=== PATIENT | female | born 1940 | race Caucasian/White ===

== ENCOUNTER 2022-11-23 17:28 | Emergency (ER) | payer MEDICARE ==
[2022-11-23] MEDS: Aspirin 81 MG Tab.Chew PO ONE (17:37)
[2022-11-23] MEDS ORDERED: Sodium Chloride 0.9% 10 ML Syringe FLUSH PRN (17:38)
[2022-11-23] MEDS: Sodium Chloride 0.9% 500 ML IV ONE (17:42)
[2022-11-23 17:58] LABS: BASOPHILS ABSOLUTE AUTO 0.07 K/uL (0.02-0.10); BASOPHILS PERCENT AUTO 0.9 % (0.0-0.5); EOSINOPHILS ABSOLUTE AUTO 0.22 K/uL (0.04-0.40); EOSINOPHILS PERCENT AUTO 2.9 % (1.0-5.0); HEMATOCRIT 34.6 % (37.0-47.0); HEMOGLOBIN 11.5 g/dL (11.5-16.5); LYMPHOCYTES PERCENT AUTO 17.4 % (20.0-40.0); MEAN CORPUSCULAR HEMOGLOBIN 31.4 pg (27.0-32.0); MEAN CORPUSCULAR HGB CONC 33.2 g/dL (31.0-35.0); MEAN CORPUSCULAR VOLUME 95 fL (76-96); MEAN PLATELET VOLUME 8.7 fL (6.0-10.0); MONOCYTES ABSOLUTE AUTO 0.96 K/uL (0.20-0.80); MONOCYTES PERCENT AUTO 12.8 % (3.0-10.0); NEUTROPHILS ABSOLUTE AUTO 4.94 K/uL (2.00-7.50); PLATELET COUNT,PLT 366 K/uL (150-500); RED BLOOD CELL COUNT 3.66 M/uL (3.80-5.80); RED CELL DISTRIBUTION WIDTH 14.3 % (11.0-16.0); WHITE BLOOD CELL COUNT,WBC 7.5 K/uL (4.0-11.0)
[2022-11-23 18:15] LABS: ALBUMIN 3.1 g/dL (3.4-5.0); ANION GAP 15.2 mmol/L (5.0-15.0); BILIRUBIN TOTAL 0.2 mg/dL (0.0-1.0); BUN/CREATININE RATIO 19.7 (6-25); CALCIUM 8.6 mg/dL (8.5-10.1); CARBON DIOXIDE,CO2 23.4 mmol/L (21.0-32.0); CREATININE 0.76 mg/dL (0.55-1.02); EST CRCL DRUG DOSING (CG) 39.58 mL/min; POTASSIUM,K 3.6 mmol/L (3.5-5.1); PROTEIN TOTAL,TP 6.2 g/dL (6.4-8.2)
[2022-11-23 18:25] VITALS: BP 122/59; PULSE 73
[2022-11-23 18:38] LABS: PROTHROMBIN TIME 10.2 sec (9.0-11.5)
== END 2022-11-23 18:47 | disposition home or self-care (01) ==
LOC: LB.ED 17:28
DX: R55 Syncope and collapse (principal)
CPT/HCPCS: 36415; 71045; 80053; 83735; 84484; 85025; 85610; 85730; 93005; 96360; 99285; A9270; J7040

== ENCOUNTER 2024-09-16 13:24 | Emergency (ER) | payer MEDICARE ==
[2024-09-16] MEDS ORDERED: Naloxone 2 MG/2 ML Syringe IVPUSH PRN (14:05)
[2024-09-16] MEDS: fentaNYL 100 MCG/2 ML SDV IVPUSH PRN (14:12)
[2024-09-16] MEDS: cefTRIAXone 1 GM in Sodium Chloride 0.9% 50 ML IV ONE (14:15)
[2024-09-16] MEDS: Sodium Chloride 0.9% 1,000 ML IV ONE (14:21)
[2024-09-16 14:23] LABS: BASOPHILS ABSOLUTE AUTO 0.05 K/uL (0.02-0.10); BASOPHILS PERCENT AUTO 0.4 % (0.0-0.5); EOSINOPHILS ABSOLUTE AUTO 0.04 K/uL (0.04-0.40); EOSINOPHILS PERCENT AUTO 0.3 % (1.0-5.0); HEMATOCRIT 36.1 % (37.0-47.0); HEMOGLOBIN 12.3 g/dL (11.5-16.5); LYMPHOCYTES ABSOLUTE AUTO 1.14 K/uL (1.50-4.00); LYMPHOCYTES PERCENT AUTO 8.7 % (20.0-40.0); MEAN CORPUSCULAR HEMOGLOBIN 32.7 pg (27.0-32.0); MEAN CORPUSCULAR HGB CONC 34.1 g/dL (31.0-35.0); MEAN CORPUSCULAR VOLUME 96 fL (76-96); MONOCYTES ABSOLUTE AUTO 1.65 K/uL (0.20-0.80); MONOCYTES PERCENT AUTO 12.5 % (3.0-10.0); NEUTROPHILS ABSOLUTE AUTO 10.27 K/uL (2.00-7.50); NEUTROPHILS PERCENT AUTO 78.1 % (45.0-70.0); PLATELET COUNT,PLT 436 K/uL (150-500); RED BLOOD CELL COUNT 3.76 M/uL (3.80-5.80); RED CELL DISTRIBUTION WIDTH 12.7 % (11.0-16.0); WHITE BLOOD CELL COUNT,WBC 13.2 K/uL (4.0-11.0)
[2024-09-16 14:48] LABS: A/G RATIO 0.9 (0.8-2.0); ALBUMIN 2.9 g/dL (3.4-5.0); ANION GAP 18.4 mmol/L (5.0-15.0); BILIRUBIN TOTAL 0.4 mg/dL (0.0-1.0); BUN/CREATININE RATIO 23.1 (6-25); CALCIUM 8.9 mg/dL (8.5-10.1); CARBON DIOXIDE,CO2 21.7 mmol/L (21.0-32.0); CREATININE 0.78 mg/dL (0.55-1.02); EST CRCL DRUG DOSING (CG) 37.19 mL/min; POTASSIUM,K 4.1 mmol/L (3.5-5.1); PROTEIN TOTAL,TP 6.3 g/dL (6.4-8.2)
[2024-09-16] MEDS: Doxycycline 100 MG in Sodium Chloride 0.9% 100 ML IV ONE (14:52)
[2024-09-16] MEDS ORDERED: traMADol 50 MG Tab ONE (15:30)
[2024-09-16] MEDS ORDERED: Doxycycline 100 MG Cap ONE (15:30)
[2024-09-16 16:01] VITALS: BP 162/81; PULSE 71
== END 2024-09-16 15:55 | disposition home or self-care (01) ==
LOC: LB.ED 13:24
DX: L03.113 Cellulitis of right upper limb (principal); I10 Essential (primary) hypertension; Z79.899 Other long term (current) drug therapy
CPT/HCPCS: 36415; 80053; 83605; 85025; 87070; 87205; 96365; 96366; 96375; 99283; 99283-25; A9270-GY; J0696; J3010; J3490; J7030

== ENCOUNTER 2024-09-17 11:49 | Emergency (ER) | payer MEDICARE ==
[2024-09-17 12:08] VITALS: BP 170/89; PULSE 70
[2024-09-17] MEDS: Lidocaine 1% 5 ML VIAL INJECT ONE (12:18)
[2024-09-17] MEDS: cefTRIAXone 1 GM Vial IM ONE (12:18)
== END 2024-09-17 12:26 | disposition home or self-care (01) ==
LOC: LB.ED 11:49
DX: L03.113 Cellulitis of right upper limb (principal); I10 Essential (primary) hypertension; Z79.899 Other long term (current) drug therapy
CPT/HCPCS: 96372; 99283; J0696; J2003